=== PATIENT | female | born 1955 | race Hispanic/Latino ===

== ENCOUNTER 2021-04-10 11:34 | Outpatient (CLI) | payer BC | END 2021-04-10 11:35 | disposition home or self-care (01) | LOC: BICRAD 11:34 | PROVIDERS: ATTEND Internal Medicine Rheumatology | DX: M81.0 Age-related osteoporosis without current pathological fracture (principal); M47.814 Spondylosis without myelopathy or radiculopathy, thoracic region | CPT/HCPCS: 72070 ==

== ENCOUNTER 2022-01-14 09:37 | Outpatient (CLI) | payer BC | END 2022-01-14 09:38 | disposition home or self-care (01) | LOC: BICRAD 09:37 | PROVIDERS: ATTEND Internal Medicine Rheumatology | DX: M81.0 Age-related osteoporosis without current pathological fracture (principal); M47.814 Spondylosis without myelopathy or radiculopathy, thoracic region | CPT/HCPCS: 72072 ==

== ENCOUNTER 2022-01-30 11:28 | Outpatient (CLI) | payer BC | END 2022-01-30 11:29 | disposition home or self-care (01) | LOC: SCSMRI 11:28 | PROVIDERS: ATTEND Family Medicine | DX: M54.50 Low back pain, unspecified (principal); M47.814 Spondylosis without myelopathy or radiculopathy, thoracic region; M51.34 Other intervertebral disc degeneration, thoracic region; M51.84 Other intervertebral disc disorders, thoracic region; G96.191 Perineural cyst | CPT/HCPCS: 72157 ==

== ENCOUNTER 2023-03-09 08:06 | Outpatient (CLI) | payer BC, MEDICARE | END 2023-03-09 08:07 | disposition home or self-care (01) | LOC: RAD 08:06 | PROVIDERS: ATTEND Internal Medicine Critical Care Medicine | DX: R06.00 Dyspnea, unspecified (principal) | CPT/HCPCS: 71046 ==